=== PATIENT | female | born 1980 | race Caucasian/White ===

== ENCOUNTER 2019-03-14 04:12 | Emergency (ER) | payer OTHER ==
[2019-03-14 04:24] VITALS: RESP 20; TEMP 97.6
[2019-03-14] MEDS ORDERED: ACETAMINOPHEN 500 MG 500 MG TAB PO ONE (04:46)
[2019-03-14 05:14] LABS: APPEARANCE,URINE Clear; BILIRUBIN,URINE NEGATIVE (NEGATIVE); COLOR,URINE Yellow; GLUCOSE, URINE (UA) NEGATIVE (NEGATIVE); KETONES,URINE NEGATIVE (NEGATIVE); LEUKOCYTE ESTERASE ,URINE NEGATIVE (NEGATIVE); NITRATE,URINE NEGATIVE (NEGATIVE); OCCULT BLOOD,URINE NEGATIVE (NEG-TRACE); UROBILINOGEN,URINE 0.2 (0.2-1.0 EU)
[2019-03-14 05:26] LABS: BASOPHILS % (AUTO) 1 % (0-3); EOSINOPHILS % (AUTO) 0 % (0-9); HEMATOCRIT 41 % (35-47); HEMOGLOBIN 14.2 gm/dl (12.0-15.5); LYMPHOCYTES % (AUTO) 23.8 % (10-50); MEAN CORPUSCULAR HGB CONC 34.1 gm/dl (32.0-36.0); MEAN CORPUSCULAR VOLUME 91 fL (81-99); MONOCYTES % (AUTO) 4.9 % (0-12); NEUTROPHILS % (AUTO) 70.2 % (37-80)
[2019-03-14 05:35] LABS: AMPHETAMINES NEGATIVE (NEGATIVE); BARBITUATES NEGATIVE (NEGATIVE); BENZODIAZEPINES NEGATIVE (NEGATIVE); CANNABINOL(THC) NEGATIVE (NEGATIVE); COCAINE(COC) NEGATIVE (NEGATIVE); METHADONE NEGATIVE (NEGATIVE); METHAMPHETAMINES NEGATIVE (NEGATIVE); OPIATES(OPI) NEGATIVE (NEGATIVE); OXYCODONE(OXY) NEGATIVE (NEGATIVE); PROPOXYPHENE(PPX) NEGATIVE (NEGATIVE); TRICYCLIC ANTIDEPRESSANTS NEGATIVE (NEGATIVE)
[2019-03-14] MEDS ORDERED: ACETAMINOPHEN 500 MG 500 MG TAB ONE (05:35)
[2019-03-14 05:49] LABS: BACTERIA NEGATIVE (< 1+); CRYSTALS NEGATIVE (0-3 AVE/HPF); RBC,URINE NEG (0-3AV/HPF); WBC,URINE NEG (0-5AV/HPF)
[2019-03-14 05:51] LABS: ALBUMIN 3.4 gm/dl (3.4-5.0); ALKALINE PHOSPHATASE 112 IU/L (46-116); ALT 25 IU/L (14-63); AST 14 IU/L (15-37); BILIRUBIN,TOTAL 0.3 mg/dl (0.2-1.0); BLOOD UREA NITROGEN 4 mg/dl (7-18); CALCIUM 8.1 mg/dl (8.5-10.1); CARBON DIOXIDE 24.9 mEq/L (21-32); CHLORIDE 108 mMol/L (98-107); CREATININE 0.56 mg/dl (0.60-1.00); GLUCOSE 122 mg/dl (74-106); POTASSIUM 3.8 mMol/L (3.5-5.1); SODIUM 144 mMol/L (136-145); THYROID STIMULATING HORMONE 1.255 uIU/ml (0.358-3.740); TOTAL PROTEIN 7.6 gm/dl (6.4-8.2)
[2019-03-14 05:53] LABS: ACETAMINOPHEN < 2 ug/ml (10-30); ALCOHOL 0.173 gm/dl (0.000-0.08)
[2019-03-14] MEDS ORDERED: SODIUM CHLORIDE 0.9% 1000ML 1,000 ML IV NR (07:00)
[2019-03-14] MEDS ORDERED: SODIUM CHLORIDE 0.9% 1000ML 1,000 ML IV ONE ×2 (07:14→08:24)
[2019-03-14 07:26] VITALS: BP 104/67; PULSE 90; O2SAT 96
== END 2019-03-14 11:30 | disposition home or self-care (01) | DRG 605 ==
LOC: ED 04:12
DX: S01.411A Laceration without foreign body of right cheek and temporomandibular area, initial encounter (principal); R45.851 Suicidal ideations; Y04.8XXA Assault by other bodily force, initial encounter; Y90.6 Blood alcohol level of 120-199 mg/100 ml
CPT/HCPCS: 36415; 70150; 80053; 80305; 80307; 81001; 84443; 84703; 85025; 96365; 96366; 99283; 99284; A6402